=== PATIENT | female | born 1990 | race American Indian/Alaskan Native ===

== ENCOUNTER 2020-05-31 02:10 | Inpatient (IN) | payer SELFPAY ==
[2020-05-31] MEDS ORDERED: Tranexamic Acid 1,000 MG in Sodium Chloride 0.9% 100 ML IV PRN (02:36)
[2020-05-31] MEDS ORDERED: Methylergonovine 0.2 MG/1 ML Amp IM PRN (02:36)
[2020-05-31] MEDS ORDERED: Sodium Chloride 0.9% 10 ML Syringe FLUSH PRN (02:36)
[2020-05-31] MEDS ORDERED: Butorphanol 1 MG/ML SDV IVPUSH PRN (02:36)
[2020-05-31] MEDS ORDERED: Lidocaine 1% 50 ML MDV INJECT PRN (02:36)
[2020-05-31] MEDS ORDERED: Sodium Chloride 0.9% 10 ML SDV IV PRN (02:36)
[2020-05-31] MEDS ORDERED: Nalbuphine 10 MG/1 ML Vial IVPUSH PRN (02:36)
[2020-05-31] MEDS ORDERED: Misoprostol 200 MCG Tab PO PRN (02:36)
[2020-05-31] MEDS ORDERED: Carboprost Tromethamine 250 MCG/1 ML Amp IM PRN (02:36)
[2020-05-31] MEDS ORDERED: Water For Irrigation,Sterile 1,000 ML Container IRR PRN (02:36)
[2020-05-31] MEDS ORDERED: Sodium Chloride 0.9% 2.5 ML Syringe FLUSH PRN (02:36)
[2020-05-31] MEDS ORDERED: Oxytocin/0.9 % Sodium Chloride 30 UNIT/500 ML BAG IV SCH (02:45)
[2020-05-31] MEDS ORDERED: Lactated Ringers 1,000 ML IV SCH (02:45)
--- NOTE | 2020-05-31 02:47 | PCM.LDHP ---
L&D History of Present Illness - General Date of Service: 05/31/20 Admit Problem/Dx: Patient Status Order with Admit Dx/Problem 05/31/20 02:37 Patient Status [ADT] Routine Admission Diagnosis/Problem Admission Diagnosis/Problem Source of Information: Patient History Limitations: Reports: No Limitations - History of Present Illness Improves with: Reports: None Worsens with: Reports: None Associated Symptoms: Reports: N - Related Data Allergies/Adverse Reactions: Allergies Allergy/AdvReac Type Severity Reaction Status Date / Time amoxicillin Allergy Cannot Verified 01/01/16 20:15 Remember Latex, Natural Rubber Allergy Itching Verified 01/01/16 20:15 Penicillins Allergy Cannot Verified 01/01/16 20:15 Remember Home Medications: Home Meds . 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 Musculoskeletal History: Reports: None Neurological History: Reports: None Psychiatric History: Reports: None Endocrine/Metabolic History: Reports: None Hematologic History: Reports: None Immunologic History: Reports: None Oncologic (Cancer) History: Reports: None Dermatologic History: Reports: None - Infectious Disease History Infectious Disease History: Reports: None Other Infectious Disease History: childhood - Past Surgical History Head Surgeries/Procedures: Reports: None HEENT Surgical History: Reports: Adenoidectomy, Tonsillectomy GI Surgical History: Reports: Cholecystectomy Social & Family History - Family History Family Medical History: No Pertinent Family History H&P Review of Systems - Review of Systems: Review Of Systems: See Below General: Reports: No Symptoms HEENT: Reports: No Symptoms Pulmonary: Reports: No Symptoms Cardiovascular: Reports: No Symptoms Gastrointestinal: Reports: No Symptoms Genitourinary: Reports: No Symptoms Musculoskeletal: Reports: No Symptoms Skin: Reports: No Symptoms Psychiatric: Reports: No Symptoms Neurological: Reports: No Symptoms Hematologic/Lymphatic: Reports: No Symptoms Immunologic: Reports: No Symptoms L&D Exam - Exam Exam: See Below - OB Specific Contraction Intensity: Moderate to Strong Movement: Active Heart Tones: Present Presentation: Vertex - June Score June Score Cervix Position: Anterior June Score Consistency: Soft June Score Effacement: >80% June Score Dilation: > 5 cm June Score Infant's Station: -1 ,0 June Score Total: 12 - Exam General: Alert, Oriented HEENT: PERRLA, Conjunctiva Clear, EACs Clear, EOMI, Hearing Intact, Mucosa Moist & [place], Nares Patent, Normal Nasal Septum, Posterior Pharynx Clear, TMs Clear Neck: Supple, Trachea Midline Lungs: Clear to Auscultation, Normal Respiratory Effort Cardiovascular: Regular Rate, Regular Rhythm GI/Abdominal Exam: Normal Bowel Sounds, Soft, Non-Tender, No Organomegaly, No Distention, No Abnormal Bruit, No Mass, Pelvis Stable Rectal Exam: Normal Exam, Normal Rectal Tone Genitourinary: Normal external exam, Normal bimanual exam, Normal speculum exam Back Exam: Normal Inspection, Full Range of Motion Extremities: Normal Inspection, Normal Range of Motion, Non-Tender, No Pedal Edema, Normal Capillary Refill Skin: Warm, Dry, Intact Neurological: Cranial Nerves Intact, Reflexes Equal Bilateral Psychiatric: Alert, Normal Affect, Normal Mood Problem List Initiated/Reviewed/Updated: Yes Orders Last 24hrs: Active Orders 24 hr Category Date Time Status Patient Status [ADT] Routine ADT 05/31/20 02:37 Active Heart Tones [RC] CONTINUOUS Care 05/31/20 02:37 Ordered Non Stress Test [RC] PER UNIT ROUTINE Care 05/31/20 02:37 Ordered May Shower [RC] ASDIRECTED Care 05/31/20 02:37 Ordered Notify Provider [RC] PRN Care 05/31/20 02:37 Ordered Up ad Khloe [RC] ASDIRECTED Care 05/31/20 02:37 Ordered Vaginal Exam [RC] PRN Care 05/31/20 02:37 Ordered Vital Signs [RC] PER UNIT ROUTINE Care 05/31/20 02:37 Ordered Regular Diet [DIET] Diet 05/31/20 Breakfast Active CBC W/O DIFF,HEMOGRAM [HEME] Routine Lab 05/31/20 02:37 Ordered RPR (SYPHILIS SERO) W/ RFLX [REF] Routine Lab 05/31/20 02:37 Ordered TYPE AND SCREEN [BBK] Routine Lab 05/31/20 02:37 Ordered Butorphanol [Stadol] Med 05/31/20 02:36 Ordered 1 mg IVPUSH Q1H PRN Carboprost Tromethamine [Hemabate DS] Med 05/31/20 02:36 Ordered 250 mcg IM ASDIRECTED PRN Lactated Ringers @ 150 MLS/HR(1000ml) Med 05/31/20 02:45 Ordered Lactated Ringers [Ringers, Lactated] 1,000 ml IV ASDIRECTED Lidocaine 1% [Xylocaine 1%] Med 05/31/20 02:36 Ordered 50 ml INJECT ONETIME PRN Methylergonovine [Methergine] Med 05/31/20 02:36 Ordered 0.2 mg IM ASDIRECTED PRN Nalbuphine [Nubain] Med 05/31/20 02:36 Ordered 10 mg IVPUSH Q1H PRN Oxytocin/0.9 % Sodium Chloride [Oxytocin 30 Unit/500 ML Med 05/31/20 02:45 Ord ered -NS] 30 unit in 500 ml IV TITRATE Sodium Chloride 0.9% [Normal Saline] Med 05/31/20 02:36 Ordered 10 ml IV ASDIRECTED PRN Sodium Chloride 0.9% [Saline Flush] Med 05/31/20 02:36 Ordered 10 ml FLUSH ASDIRECTED PRN Sodium Chloride 0.9% [Saline Flush] Med 05/31/20 02:36 Ordered 2.5 ml FLUSH ASDIRECTED PRN Tranexamic Acid [Cyklokapron] 1,000 mg Med 05/31/20 02:36 Ordered Sodium Chloride 0.9% [Normal Saline] 100 ml IV ONETIME Water For Irrigation,Sterile [Sterile Water for Med 05/31/20 02:36 Ordered Irrigation] 1,000 ml IRR ASDIRECTED PRN miSOPROStoL [Cytotec] Med 05/31/20 02:36 Ordered 200 mcg PO ONETIME PRN Scalp Electrode [WOMSER] Per Unit Routine Oth 05/31/20 02:37 Ordered Peripheral IV Insertion Adult [OM.PC] Routine Oth 05/31/20 02:37 Ordered Resuscitation Status Routine Resus Stat 05/31/20 02:36 Ordered Assessment/Plan Comment:: Term no care. P2002 S/P in both 10and 7 years ago.
[2020-05-31] MEDS ORDERED: Oxytocin/0.9 % Sodium Chloride 30 UNIT/500 ML BAG ONE (02:49)
[2020-05-31] MEDS ORDERED: Docusate Sodium 100 MG Cap PO PRN (03:45)
[2020-05-31] MEDS ORDERED: Benzocaine/Menthol 20%-0.5% Spray 78 GM Cannister TOP PRN (03:45)
[2020-05-31] MEDS ORDERED: Ibuprofen 400 MG Tab PO PRN (03:45)
[2020-05-31] MEDS ORDERED: oxyCODONE 5 MG Tab PO PRN (03:45)
[2020-05-31] MEDS ORDERED: Lanolin 100% Cream 7 GM Tube TOP PRN (03:45)
[2020-05-31] MEDS ORDERED: Bisacodyl 10 MG Supp RECTAL PRN (03:45)
[2020-05-31] MEDS ORDERED: Acetaminophen 500 MG Tab PO PRN ×2 (03:45)
[2020-05-31] MEDS ORDERED: Witch Hazel Medicated Pads 40/Jar TOP PRN (03:45)
[2020-05-31] MEDS: Ibuprofen 800 MG Tab PO PRN ×2 (04:10→12:17)
--- NOTE | 2020-05-31 10:21 | OR ---
SURGEON: Arnulfo Flores MD DATE OF PROCEDURE: 05/31/2020 Ms. Chun is a 29-year-old para 2-0-0-2. She had no care in this . She thinks was due 2 days ago, and she is admitted in active labor. She is status post 2 normal spontaneous vaginal deliveries 10 years and 7 years ago. The patient has admitted to use of drug in this , and the last when she used heroin, according to her, was 2 days ago. However, at the time of admission, she was 8 to 9 cm with a bulging bag of water, vertex, and 0 station. I did an artificial rupture of the membrane, and there was clear fluid. heart rate was category I. The patient progressed rather rapidly, and she had a normal spontaneous vaginal delivery of a female fetus, cried immediately. score and the weight are not available at the time of the dictation. The placenta delivered spontaneous, complete, and intact without any problem. There was no perineal, labial, or cervical laceration. Estimated blood loss was 350 to 400 mL, and there was no complication in the and the labor process. heart rate was category I through the entire process of labor. TONYA / KIRAN /[id number]
--- NOTE | 2020-05-31 15:42 | PCM.DCSUM1 ---
Discharge Summary - Hospital Course Free Text/Narrative:: Sandra is a 29 yo PPD0 S/P uncomplicated to term NBF. A pos, Ab screen neg, R unknown, GBS unknown with inadequate ampicillin prophylaxis prior to . 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 Patient has no complaints or concerns at this time. Patient is bottle feeding well, discouraged from due to circumstances, resting comfortably in bed with in bassinet. Patient reports she is eating, voiding, ambulating independently and without difficulty. Patient denies any problems or concerns at this time, no pain. Patient reports moderate vaginal bleeding with no clots. Social workers consulted today due to drug abuse, plan for NBF to be discharged home with other family members or possibly FOB. Patient verbalizes understanding, considering discharge home alone today. Diagnosis: Stroke: No - Discharge Data Discharge Date: 05/31/20 Discharge Disposition: Home, Self-Care 01 Condition: Good - Referral to Home Health Primary Care Physician: Lubna Vaughn, DO - Discharge Diagnosis/Problem(s) (1) (spontaneous vaginal delivery) SNOMED Code(s): 403318660 ICD Code: O80 - ENCOUNTER FOR FULL-TERM UNCOMPLICATED DELIVERY Status: Acute Priority: High Current Visit: Yes (2) complicated by maternal drug use, delivered, curr hospitaliz SNOMED Code(s): 90513782 ICD Code: O99.324 - DRUG USE COMPLICATING CHILDBIRTH; F19.90 - OTHER PSYCHOACTIVE SUBSTANCE USE, UNSPECIFIED, UNCOMPLICATED Status: Acute Priority: High Current Visit: Yes - Patient Summary/Data Consults: Consultations 05/31/20 09:43 Consult to Case Management/Eating Disorder Specialist [CONS] Routine - Patient Instructions Diet: Usual Diet as Tolerated, Regular Diet as Tolerated, Drink 8-10+ Glasses/Day Activity: As Tolerated, No Strenuous Activities, Rest and Relax Today Driving: May Drive Today Showering/Bathing: May Shower Showering/Bathing, Other: May sitz bath for perineal comfort Notify Provider of: Fever, Increased Pain, Swelling and Redness, Drainage, Nausea and/or Vomiting - Discharge Plan *PRESCRIPTION DRUG MONITORING PROGRAM REVIEWED*: No *COPY OF PRESCRIPTION DRUG MONITORING REPORT IN PATIENT TUAN: No Prescriptions/Med Rec: Iron Polysaccharides Complex [Ferrex 150] 150 mg PO DAILY #30 cap Ibuprofen [Motrin] 800 mg PO Q8H PRN #90 tablet PRN Reason: Pain Home Medications: Home Meds Ibuprofen [Motrin] 800 mg PO Q8H PRN #90 tablet 05/31/20 [Rx] Iron Polysaccharides Complex [Ferrex 150] 150 mg PO DAILY #30 cap 05/31/20 [Rx] Oxygen Therapy Mode: Room Air - Discharge Summary/Plan Comment DC Time >30 min.: Yes Discharge Summary/Plan Comment: Hemodynamically stable, afebrile. Hemoglobin 10.0 prior to delivery with EBL ~350 ml, start daily iron supplementation, F/U as indicated. Continue eating, hydrating, voiding, ambulating independently. D/C home today independently from NBF. Plan for to be discharged home with other family members or possibly FOB. F/U in [address] [facility]IA[facility] of choice. Dr. Flores notified and agreeable with POC. - General Info Date of Service: 05/31/20 Admission Dx/Problem (Free Text: Patient Status Order with Admit Dx/Problem 05/31/20 02:37 Patient Status [ADT] Routine Admission Diagnosis/Problem Admission Diagnosis/Problem Functional Status: Reports: Pain Controlled, Tolerating Diet, Ambulating, Urinating - Review of Systems General: Reports: No Symptoms HEENT: Reports: No Symptoms Pulmonary: Reports: No Symptoms Cardiovascular: Reports: No Symptoms Gastrointestinal: Reports: No Symptoms Genitourinary: Reports: No Symptoms Musculoskeletal: Reports: No Symptoms Skin: Reports: No Symptoms Neurological: Reports: No Symptoms Psychiatric: Reports: No Symptoms - Patient Data Vitals - Most Recent: Last Vital Signs Temp 97.7 F 05/31/20 07:30 Pulse 79 05/31/20 07:30 Resp 16 05/31/20 07:30 BP 121/69 05/31/20 07:30 Pulse Ox 100 05/31/20 07:30 Weight - Most Recent: 122 lb Lab Results - Last 24 hrs: Laboratory Results - last 24 hr 05/31/20 05/31/20 05/31/20 Range/Units 02:18 02:40 02:40 WBC 12.38 H (4.0-11.0) K/uL RBC 4.08 L (4.30-5.90) M/uL Hgb 10.0 L (12.0-16.0) g/dL Hct 33.0 L (36.0-46.0) % MCV 80.9 (80.0-98.0) fL MCH 24.5 L (27.0-32.0) pg MCHC 30.3 L (31.0-37.0) g/dL RDW Std Deviation 45.4 (28.0-62.0) fl RDW Coeff of Ariana 16 H (11.0-15.0) % Plt Count 460 H (150-400) K/uL MPV 9.30 (7.40-12.00) fL Nucleated RBC % 0.0 /100WBC Nucleated RBCs # 0 K/uL Urine Opiates Screen (NEGATIVE) Ur Oxycodone Screen (NEGATIVE) Urine Methadone Screen (NEGATIVE) Ur Barbiturates Screen (NEGATIVE) Ur Phencyclidine Scrn (NEGATIVE) Ur Amphetamine Screen (NEGATIVE) U Methamphetamines Scrn (NEGATIVE) U Benzodiazepines Scrn (NEGATIVE) U Cocaine Metab Screen (NEGATIVE) U Marijuana (THC) Screen (NEGATIVE) SARS-CoV-2 RNA (CARI) NEGATIVE (NEGATIVE) Blood Type A POSITIVE Antibody Screen NEGATIVE 05/31/20 Range/Units 07:45 WBC (4.0-11.0) K/uL RBC (4.30-5.90) M/uL Hgb (12.0-16.0) g/dL Hct (36.0-46.0) % MCV (80.0-98.0) fL MCH (27.0-32.0) pg MCHC (31.0-37.0) g/dL RDW Std Deviation (28.0-62.0) fl RDW Coeff of Ariana (11.0-15.0) % Plt Count (150-400) K/uL MPV (7.40-12.00) fL Nucleated RBC % /100WBC Nucleated RBCs # K/uL Urine Opiates Screen POSITIVE (NEGATIVE) Ur Oxycodone Screen NEGATIVE (NEGATIVE) Urine Methadone Screen NEGATIVE (NEGATIVE) Ur Barbiturates Screen NEGATIVE (NEGATIVE) Ur Phencyclidine Scrn NEGATIVE (NEGATIVE) Ur Amphetamine Screen POSITIVE (NEGATIVE) U Methamphetamines Scrn POSITIVE (NEGATIVE) U Benzodiazepines Scrn NEGATIVE (NEGATIVE) U Cocaine Metab Screen NEGATIVE (NEGATIVE) U Marijuana (THC) Screen NEGATIVE (NEGATIVE) SARS-CoV-2 RNA (CARI) (NEGATIVE) Blood Type Antibody Screen Med Orders - Current: Current Medications Acetaminophen (Tylenol Extra Strength) 500 mg PO Q4H PRN PRN Reason: Pain Acetaminophen (Tylenol Extra Strength) 1,000 mg PO Q4H PRN PRN Reason: Pain Last Admin: 05/31/20 04:09 Dose: 1,000 mg Documented by: Benzocaine/Menthol (Dermoplast Pain Relief 20%-0.5% [place]) 78 gm TOP ASDIRECTED PRN PRN Reason: Perineal Comfort Measure Last Admin: 05/31/20 04:12 Dose: 1 canister Documented by: Bisacodyl (Dulcolax) 10 mg RECTAL ONETIME PRN PRN Reason: Constipation Butorphanol Tartrate (Stadol) 1 mg IVPUSH Q1H PRN PRN Reason: Pain Carboprost Tromethamine (Hemabate Ds) 250 mcg IM ASDIRECTED PRN PRN Reason: Post Hemorrhage Docusate Sodium (Colace) 100 mg PO BID PRN PRN Reason: Constipation Last Admin: 05/31/20 04:11 Dose: 100 mg Documented by: Emollient Ointment (Lansinoh Hpa) 0 gm TOP ASDIRECTED PRN PRN Reason: Sore Nipples Oxytocin/Sodium Chloride (Oxytocin 30 Unit/500 Ml-Ns) 30 unit in 500 mls @ 999 mls/hr IV TITRATE [facility] Tranexamic Acid 1,000 mg/ (Sodium Chloride) 110 mls @ 660 mls/hr IV ONETIME PRN PRN Reason: Bleeding Lactated Ringer's (Ringers, Lactated) 1,000 mls @ 150 mls/hr IV ASDIRECTED JUAN MIGUEL Last Admin: 05/31/20 03:03 Dose: 150 mls/hr Documented by: Ibuprofen (Motrin) 400 mg PO Q4H PRN PRN Reason: Pain Ibuprofen (Motrin) 800 mg PO Q6H PRN PRN Reason: Pain Last Admin: 05/31/20 12:17 Dose: 800 mg Documented by: Lidocaine HCl (Xylocaine 1%) 50 ml INJECT ONETIME PRN PRN Reason: Laceration repair Methylergonovine Maleate (Methergine) 0.2 mg IM ASDIRECTED PRN PRN Reason: Post Hemorrhage Misoprostol (Cytotec) 200 mcg PO ONETIME PRN PRN Reason: Post Hemorrhage Nalbuphine HCl (Nubain) 10 mg IVPUSH Q1H PRN PRN Reason: Pain (severe 7-10) Oxycodone HCl (Oxycodone) 5 mg PO Q2H PRN PRN Reason: Pain Sodium Chloride (Saline Flush) 10 ml FLUSH ASDIRECTED PRN PRN Reason: Keep Vein Open Sodium Chloride (Saline Flush) 2.5 ml FLUSH ASDIRECTED PRN PRN Reason: Keep Vein Open Sodium Chloride (Normal Saline) 10 ml IV ASDIRECTED PRN PRN Reason: IV Use Sterile Water (Sterile Water For Irrigation) 1,000 ml IRR ASDIRECTED PRN PRN Reason: delivery Mony Han (Tucks) 1 pad TOP ASDIRECTED PRN PRN Reason: comfort care Last Admin: 05/31/20 04:12 Dose: 1 canister Documented by: Discontinued Medications Oxytocin/Sodium Chloride (Oxytocin 30 Unit/500 Ml-Ns) Confirm Administered Dose 30 unit in 500 mls @ as directed .ROUTE .K-MED ONE Stop: 05/31/20 02:50 - Exam General: Reports: Oriented, Cooperative, Lethargic HEENT: Reports: Pupils Equal, Pupils Reactive, Mucous Membr. Moist/[place] Neck: Reports: Supple Lungs: Reports: Clear to Auscultation, Normal Respiratory Effort Cardiovascular: Reports: Regular Rate, Regular Rhythm GI/Abdominal Exam: Normal Bowel Sounds, Soft, Non-Tender, No Organomegaly, No Distention (Female) Exam: Enlarged Uterus ( uterus, firm U-1), Vaginal Bleeding (Moderate rubra lochia, no clots) Rectal (Female) Exam: Deferred Back Exam: Reports: Normal Inspection, Full Range of Motion Extremities: Normal Inspection, Normal Range of Motion, Non-Tender, No Pedal Edema, Normal Capillary Refill Skin: Reports: Warm, Dry, Intact Neurological: Reports: No New Focal Deficit Psy/Mental Status: Reports: Alert, Normal Affect, Normal Mood
[2020-05-31] MEDS ORDERED: Iron Polysaccharides Complex 150 MG Cap PO SCH (15:45)
[2020-05-31 19:57] VITALS: BP 120/76; PULSE 90
== END 2020-05-31 20:45 | disposition home or self-care (01) | DRG 807 ==
LOC: MW.OBCHECK 02:10 → MW.OB 02:11 → MW.OBCHECK 02:37 → OBSVTOIN 03:38 → MW.OB 06:16
PROVIDERS: ADMIT Obstetrics & Gynecology; ATTEND Obstetrics & Gynecology
PROC: 10E0XZZ Delivery of Products of Conception, External Approach (ICD-10-PCS; principal; 2020-05-31)
PROC: 10907ZC Drainage of Amniotic Fluid, Therapeutic from Products of Conception, Via Natural or Artificial Opening (ICD-10-PCS; 2020-05-31)
DX: O99.324 Drug use complicating childbirth (principal); Z37.0 Single live birth; F19.90 Other psychoactive substance use, unspecified, uncomplicated; Z88.0 Allergy status to penicillin; Z91.040 Latex allergy status; Z88.1 Allergy status to other antibiotic agents; Z3A.38 38 weeks gestation of pregnancy; Z20.828 Contact with and (suspected) exposure to other viral communicable diseases; Z3A.00 Weeks of gestation of pregnancy not specified
CPT/HCPCS: 36415; 59025; 59409; 80305-QW; 85027; 86592; 86850; 86900; 86901; A9270-GY; J7120; U0002

== ENCOUNTER 2022-07-17 12:08 | Emergency (ER) | payer OTHER ==
[2022-07-17] MEDS ORDERED: Bacitracin Oint 1 GM U/D Packet TOP ONE (12:55)
[2022-07-17] MEDS ORDERED: Sulfamethoxazole/Trimethoprim 800-160 MG Tab PO ONE (12:55)
[2022-07-17 13:23] VITALS: BP 87/46; PULSE 72
== END 2022-07-17 13:23 | disposition home or self-care (01) ==
LOC: MW.ED 12:08
DX: S81.001A Unspecified open wound, right knee, initial encounter (principal); S81.002A Unspecified open wound, left knee, initial encounter; L03.115 Cellulitis of right lower limb; L03.116 Cellulitis of left lower limb; Z88.0 Allergy status to penicillin; Z79.899 Other long term (current) drug therapy; Z90.49 Acquired absence of other specified parts of digestive tract; Z72.0 Tobacco use
CPT/HCPCS: 99283; A9270

== ENCOUNTER 2024-03-23 16:17 | Emergency (ER) | payer MEDICAID ==
[2024-03-23] MEDS ORDERED: Sodium Chloride 0.9% 2.5 ML Syringe FLUSH PRN (16:42)
[2024-03-23] MEDS ORDERED: Sodium Chloride 0.9% 10 ML Syringe FLUSH PRN (16:42)
[2024-03-23 17:01] LABS: BASOPHILS ABSOLUTE AUTO 0.05 K/uL (0.00-0.20); BASOPHILS PERCENT AUTO 0.5 % (0.0-1.0); EOSINOPHILS ABSOLUTE AUTO 0.06 K/uL (0.00-0.45); EOSINOPHILS PERCENT AUTO 0.6 % (0.0-6.0); HEMATOCRIT 41.6 % (37.0-47.0); HEMOGLOBIN 13.8 g/dL (12.0-16.0); IMMATURE GRAN ABSOLUTE AUTO 0.01 K/uL (0.00-0.05); IMMATURE GRAN PERCENT AUTO 0.1 % (0.0-0.4); LYMPHOCYTES ABSOLUTE AUTO 2.79 K/uL (1.00-4.80); LYMPHOCYTES PERCENT AUTO 29.9 % (24.0-44.0); MEAN CORPUSCULAR HEMOGLOBIN 29.2 pg (28.0-32.0); MEAN CORPUSCULAR HGB CONC 33.2 g/dL (32.0-36.0); MEAN CORPUSCULAR VOLUME 88.1 fL (83.0-99.0); MEAN PLATELET VOLUME 8.6 fL (9.4-12.3); MONOCYTES ABSOLUTE AUTO 0.53 K/uL (0.00-0.80); MONOCYTES PERCENT AUTO 5.7 % (0.0-8.0); NEUTROPHILS PERCENT AUTO 63.2 % (41.0-71.0); PLATELET COUNT,PLT 373 K/uL (150-400); RED BLOOD CELL COUNT 4.72 M/uL (4.10-5.30); WHITE BLOOD CELL COUNT,WBC 9.34 K/uL (3.9-11.3)
[2024-03-23 17:17] LABS: INR 1.03 (0.86-1.11)
[2024-03-23 17:22] LABS: A/G RATIO 1.1 (0.9-1.6); ALBUMIN 4.1 g/dL (3.4-5.0); BILIRUBIN TOTAL 0.5 mg/dL (0.2-1.0); CALCIUM 9.6 mg/dL (8.5-10.1); CARBON DIOXIDE,CO2 33.1 mmol/L (21.0-32.0); EST CRCL DRUG DOSING (CG) 64.47 mL/min; POTASSIUM,K 3.8 mmol/L (3.5-5.1)
[2024-03-23 18:32] LABS: AMPHETAMINES SCREEN, URINE PRESUMPTIVE POSITIVE (CUTOFF=500); BARBITURATE SCREEN,URINE NEGATIVE (CUTOFF=200); BENZODIAZEPINES SCREEN,URINE PRESUMPTIVE POSITIVE (CUTOFF=150); BUPRENORPHINE SCREEN,URINE NEGATIVE (CUTOFF=10); METHADONE SCREEN, URINE PRESUMPTIVE POSITIVE (CUTOFF=200); METHAMPHETAMINES SCREEN, URINE PRESUMPTIVE POSITIVE (CUTOFF=500); OXYCODONE SCREEN,URINE NEGATIVE (CUT0FF=100); PCP SCREEN,URINE NEGATIVE (CUTOFF=25); THC SCREEN,URINE 20 NG/ML NEGATIVE (CUTOFF=50)
[2024-03-23 18:49] VITALS: BP 116/91; PULSE 109
== END 2024-03-23 18:48 | disposition home or self-care (01) ==
LOC: MW.ED 16:17
DX: H53.2 Diplopia (principal); F17.210 Nicotine dependence, cigarettes, uncomplicated; Z90.49 Acquired absence of other specified parts of digestive tract; Z88.0 Allergy status to penicillin; Z75.8 Other problems related to medical facilities and other health care
CPT/HCPCS: 36415; 70450; 70450-26; 80053; 80305-QW; 81025; 83690; 85025; 85610; 99282; 99285